=== PATIENT | male | born 1970 | race Caucasian/White ===

== ENCOUNTER 2016-12-30 17:53 | Emergency (ER) | payer OTHER ==
[2016-12-30 18:39] LABS: ALBUMIN 4.6 g/dL (3.5-5.0); ALKALINE PHOSPHATASE 79 U/L (38-126); ALT 57 U/L (21-72); AST 76 U/L (17-59); BILIRUBIN, DIRECT 0.4 mg/dL (0.0-0.4); BILIRUBIN, TOTAL 0.9 mg/dL (0.2-1.3); BLOOD UREA NITROGEN 7 mg/dL (9-20); CALCIUM 9.1 mg/dL (8.4-10.2); CHLORIDE 99 mmol/L (98-107); EST GLOMERULAR FILTRATION RATE > 60 mL/min; GLUCOSE 108 mg/dL (70-100); LIPASE 284 U/L (23-300); MAGNESIUM 1.6 mg/dL (1.6-2.3); SODIUM 138 mmol/L (137-145); TOTAL PROTEIN 8.1 g/dL (6.3-8.2)
[2016-12-30 18:47] LABS: ETHYL ALCOHOL 302 mg/dL (<10)
[2016-12-30 18:55] LABS: BASOPHILS 0.6 % (0.0-2.0); HEMATOCRIT 51.4 % (42.0-54.0); HEMOGLOBIN 17.1 g/dL (14.0-18.0); LYMPHOCYTES 34.2 % (20.0-40.0); MEAN CORPUS. HGB CONCENTRATION 33.2 g/dL (32.0-36.0); MEAN CORPUSCULAR HEMOGLOBIN 29.4 pg (29.0-35.0); MEAN PLATELET VOLUME 8.8 fL (7.4-10.4); MONOCYTES 8.3 % (2.0-10.0); NEUTROPHILS 52.9 % (54.0-75.0); PLATELET COUNT 119 X 10^3uL (130-440); RED CELL DISTRIBUTION WIDTH 17.2 % (11.5-14.5); WHITE BLOOD COUNT 5.5 X 10^3uL (3.9-10.7)
[2016-12-30 18:56] LABS: EOSINOPHILS# 0.2 X 10^3uL (0.0-0.4); LYMPHOCYTES# 1.9 X 10^3uL (0.8-3.8); MONOCYTES# 0.5 X 10^3uL (0.2-1.0); NEUTROPHILS# 2.9 X 10^3uL (2.6-6.7)
--- NOTE | 2016-12-30 21:15 | ER NURSING DOCUMENTATION ---
Nurse's Notes [facility] Name:Elvis Flores Age:46 yrs Sex:Male :1970 Arrival Date:12/30/2016 Time:17:53 Bed3 Private MD: Diagnosis:Alcohol Abuse Presentation: 12/30 17:55 Acuity: ROJELIO 3 rh 18:05 Presenting complaint: Patient states: CHECKING INTO [facility] FOR ALCOHOL REHAB AND BLEW lc OVER 300 FOR LEVEL AND SENT TO ED. Transition of care: patient was not received from another setting of care. Notified ED Physician of patient's arrival and CC. 18:05 Method Of Arrival: Private Vehicle lc Triage Assessment: 18:13 General: Appears in no apparent distress, Behavior is cooperative, pleasant. Pain: lc Denies pain. Neuro: Level of Consciousness is awake, alert, Oriented to person, place, time, event. Respiratory: Airway is patent Respiratory effort is even, unlabored, Respiratory pattern is regular, symmetrical. GI: Denies diarrhea, nausea, vomiting. Derm: Skin is pink, warm & dry. Historical: - Allergies: No known drug Allergies; - Home Meds: 1. Xarelto oral 2. lisinopril 20 mg oral tab once daily 3. Allopurinol Oral 4. PROAIR - PMHx: DVT; Hypertension; GOUT; Asthma; - PSHx: Knee surgery; - Tetanus: < 10 years. - Ebola Screening: : Patient denies travel to an Ebola-affected area in the 21 days before illness onset. No symptoms or risks identified at this time. . - Immunization history: Flu Vaccine < 1 year. - Social history: Smoking status: Patient uses tobacco products, current every day smoker. Patient uses alcohol marijuana Patient/guardian denies using street drugs, IV drugs. Assessment: 18:46 Reassessment: Patient appears in no apparent distress at this time. VSS, DRINKING lc DILUTED GATORADE PO, EATING A DINNER TRAY. REMAINS ALERT AND ORIENTED.. Vital Signs: 18:14 BP 158 / 100; Pulse 96; Resp 18; Temp 98.1; Pulse Ox 90% on R/A; Weight 108.86 kg; lc Height 5 ft. 6 in. (167.64 cm); Pain 0/10; 18:45 BP 130 / 84; Pulse 94; Resp 18; Pulse Ox 90% on R/A; Pain 0/10; lc 21:12 BP 133 / 85; Pulse 87; Resp 17; Temp 98; Pulse Ox 91% on R/A; Pain 0/10; mk4 18:14 Body Mass Index 38.74 (108.86 kg, 167.64 cm) ED Course: 17:54 Patient arrived in ED. jt 17:55 Triage completed. 17:55 Mina Gilbert MD is Attending Physician. ct 18:05 Alisa Coffey, RN is Primary Nurse. 18:20 Labs drawn. (by ED staff). Sent per order to lab. Inserted peripheral IV: 20 gauge in left antecubital area and blood collected. 18:45 Notified ED physician, Dr. Gilbert of critical lab value for ETOH with actual value of lc >300 No new orders received at this time. Administered Medications: 18:17 Drug: Banana Bag - (NS 0.9% 1000 ml, folic acid 600 mcg, Thiamine 100 mg, Multivitamin rh 10 ml, Magnesium Sulfate 1 grams); Route: IV; Rate: calculated rate; Site: left antecubital; 20:05 Follow up: IV Status: Completed infusion; IV Intake: 1000ml rh 18:18 CANCELLED (Duplicate Order): Banana Bag - (NS 0.9% 1000 ml, folic acid 600 mcg, lc Thiamine 100 mg, Multivitamin 10 ml, Magnesium Sulfate 1 grams) IV at calculated rate once Intake: 20:05 IV: 1000ml; Total: 1000ml. Outcome: 18:45 Discharge ordered by . ct 21:12 Discharged to home ambulatory. 4 21:12 Condition: good 21:12 Discharge Assessment: Patient awake, alert and oriented x 3. No cognitive and/or functional deficits noted. Patient verbalized understanding of disposition instructions. 21:12 Discharge instructions given to patient, Peyton BAXTER Instructed on discharge instructions, follow up and referral plans. Demonstrated understanding of instructions. 21:15 Patient left the ED. 4 12/31 14:13 Discharge F/U Call: Unable to reach: no answer lp Signatures: Alisa Coffey, SAHIL BAXTER Liana Perdomo RN RN Mina Gilbert MD MD ct Jessica Rm [facility] Lisa Gaona Mariza Malloy
--- NOTE | 2016-12-30 21:15 | ER PHYSICIAN DOCUMENTATION ---
Physician Documentation [facility] Name:Elvis Flores Age:46 yrs Sex:Male :1970 Arrival Date:12/30/2016 Time:17:53 Bed3 Private MD: Mina Crandall Disposition: 12/30/16 18:45 Discharged to Home/Self Care. Impression: Alcohol Abuse. - Condition is Good. - Discharge Instructions: Abuse, Alcohol - ALCOHOL INTOXICATION. - Medical Reconciliation form form. - Follow up: Private Physician; When: Tomorrow; Reason: Continuance of care. - Problem is new. - Symptoms have improved. HPI: 12/30 18:34 This 46 yrs old Male presents to ER via Private Vehicle with complaints of sc ETOH Abuse. 18:34 The patient presents to the emergency department with a history of substance abuse, sc Type: beer. Onset: The symptom(s)/episode began/occurred today. Associated signs and symptoms: The patient has no apparent associated signs or symptoms. The patient has experienced similar episodes in the past, chronically. Sent to ER by [place] because breathalyzer above 300.. Historical: - Allergies: No known drug Allergies; - Home Meds: 1. Xarelto oral 2. lisinopril 20 mg oral tab once daily 3. Allopurinol Oral 4. PROAIR - PMHx: DVT; Hypertension; GOUT; Asthma; - PSHx: Knee surgery; - Tetanus: < 10 years. - Ebola Screening: : Patient denies travel to an Ebola-affected area in the 21 days before illness onset. No symptoms or risks identified at this time. . - Immunization history: Flu Vaccine < 1 year. - Social history: Smoking status: Patient uses tobacco products, current every day smoker. Patient uses alcohol marijuana Patient/guardian denies using street drugs, IV drugs. ROS: 18:41 Constitutional: Negative for fever, chills, and weight loss. sc Eyes: Negative for injury, pain, redness, and discharge. ENT: Negative for injury, pain, and discharge. Neck: Negative for injury, pain, and swelling. Cardiovascular: Negative for chest pain, palpitations, and edema. Respiratory: Negative for shortness of breath, cough, wheezing, and pleuritic chest pain. Abdomen/GI: Negative for abdominal pain, nausea, vomiting, diarrhea, and constipation. Back: Negative for injury and pain. MS/Extremity: Negative for injury and deformity. Skin: Negative for injury, rash, and discoloration. 18:41 Neuro: Negative for headache, weakness, numbness, tingling, and seizure. sc Exam: Constitutional: This is a well developed, well nourished patient who is awake, alert, and in no acute distress. Head/Face: Normocephalic, atraumatic. Eyes: Pupils equal round and reactive to light, extra-ocular motions intact. Lids and lashes normal. Conjunctiva and sclera are non-icteric and not injected. Cornea within normal limits. Periorbital areas with no swelling, redness, or edema. ENT: Nares patent. No nasal discharge, no septal abnormalities noted. Tympanic membranes are normal and external auditory canals are clear. Oropharynx with no redness, swelling, or masses, exudates, or evidence of obstruction, uvula midline. Mucous membranes moist. Neck: Trachea midline, no thyromegaly or masses palpated, and no cervical lymphadenopathy. Supple, full range of motion without nuchal rigidity, or vertebral point tenderness. No meningismus. Chest/axilla: Normal chest wall appearance and motion. Nontender with no deformity. No lesions are appreciated. Cardiovascular: Regular rate and rhythm with a normal S1 and S2. No gallops, murmurs, or rubs. Normal PMI, no JVD. No pulse deficits. Respiratory: Lungs have equal breath sounds bilaterally, clear to auscultation and percussion. No rales, rhonchi or wheezes noted. No increased work of breathing, no retractions or nasal flaring. Abdomen/GI: Soft, non-tender, with normal bowel sounds. No distension or tympany. No guarding or rebound. No evidence of tenderness throughout. Back: No spinal tenderness. No costovertebral tenderness. Full range of motion. Skin: Warm, dry with normal turgor. Normal color with no rashes, no lesions, and no evidence of cellulitis. MS/ Extremity: Pulses equal, no cyanosis. Neurovascular intact. Full, normal range of motion, negative Homans's, calves equal bilaterally. 18:43 Neuro: Awake and alert, GCS 15, oriented to person, place, time, and situation. sc Cranial nerves II-XII grossly intact. Motor strength 5/5 in all extremities. Sensory grossly intact. Cerebellar exam normal. Normal gait. 18:46 Psych: Behavior/mood is pleasant, Affect is calm, Oriented to person, place, time, sc Patient has no thoughts/intents to harm self or others. Vital Signs: 18:14 BP 158 / 100; Pulse 96; Resp 18; Temp 98.1; Pulse Ox 90% on R/A; Weight 108.86 kg; lc Height 5 ft. 6 in. (167.64 cm); Pain 0/10; 18:45 BP 130 / 84; Pulse 94; Resp 18; Pulse Ox 90% on R/A; Pain 0/10; lc 21:12 BP 133 / 85; Pulse 87; Resp 17; Temp 98; Pulse Ox 91% on R/A; Pain 0/10; mk4 18:14 Body Mass Index 38.74 (108.86 kg, 167.64 cm) lc MDM: 17:55 Patient medically screened. ar 18:44 Differential diagnosis: alcohol intoxication. Data reviewed: vital signs, nurses notes, ar lab test result(s), and as a result, I will continue to observe the patient. Counseling: I had a detailed discussion with the patient and/or guardian regarding: the historical points, exam findings, and any diagnostic results supporting the discharge/admit diagnosis, lab results, the need for outpatient follow up, with the patient's primary care provider. 12/30 18:44 Order name: BASIC METABOLIC PANEL; Complete Time: 19:08 [facility] 12/30 18:44 Order name: MAGNESIUM; Complete Time: 19: [facility] 12/30 18:44 Order name: HEPATIC PANEL; Complete Time: 19:08 [facility] 12/30 18:44 Order name: LIPASE; Complete Time: 19: [facility] 12/30 18:48 Order name: ETHYL ALCOHOL; Complete Time: 19:08 [facility] 12/30 18:58 Order name: CBC AUTO DIF, MDIF/RMOR IF IND; Complete Time: 19: [facility] 12/30 18:11 Order name: I & O; Complete Time: 18:12 12/30 18:11 Order name: NPO; Complete Time: 18:12 12/30 18:11 Order name: Pulse Ox Continuous; Complete Time: 18:12 12/30 18:11 Order name: Iv Saline Lock; Complete Time: 18:12 rh Dispensed Medications: 18:17 Drug: Banana Bag - (NS 0.9% 1000 ml, folic acid 600 mcg, Thiamine 100 mg, Multivitamin rh 10 ml, Magnesium Sulfate 1 grams); Route: IV; Rate: calculated rate; Site: left antecubital; 20:05 Follow up: IV Status: Completed infusion; IV Intake: 1000ml rh 18:18 CANCELLED (Duplicate Order): Banana Bag - (NS 0.9% 1000 ml, folic acid 600 mcg, lc Thiamine 100 mg, Multivitamin 10 ml, Magnesium Sulfate 1 grams) IV at calculated rate once Signatures: Alisa Coffey RN RN Mina Yao MD MD ar Jessica Rm Lisa Cantu
== END 2016-12-30 21:15 | disposition home or self-care (01) ==
LOC: EEVIPCON 17:53 → ER 17:53
DX: F10.129 Alcohol abuse with intoxication, unspecified (principal); I10 Essential (primary) hypertension; Z79.899 Other long term (current) drug therapy; F17.210 Nicotine dependence, cigarettes, uncomplicated
CPT/HCPCS: 80048; 80076; 80320; 83690; 83735; 85025; 96365; 96366; 99283